=== PATIENT | male | born 1990 | race African-American/Black ===

== ENCOUNTER 2017-12-20 16:25 | Inpatient (IN) | payer OTHER ==
[~2017-12-20] VITALS: Ht 182.9 cm; Wt 108.9 kg
--- NOTE | ~2017-12-20 | EKG ---
[facility] [address] [facility] [employer] [address] [place] [address] ELECTROCARDIOGRAM REPORT Name: ALEJANDRA BEARDEN Room #: 211-P ADM IN M.R.#: [id number] Admission: 12/20/17 Attend Phys: Nedra Maxwell Discharge: Date of : 89 Report #: [id number] THIS REPORT FOR: //name// [facility] ED Test Date: 2017-12-20 Test Time: 16:42:13 Pat Name: ALEJANDRA BEARDEN Department: Room: 211 Gender: M Chief Nuclear Medicine Technologist: Parish TANNER : 1990 Requested By: Stacy Wesley Order Number: [id number] MD: Torsten Evans Measurements Intervals [place] Rate: 66 P: 55 VA: 281 QRS: 34 QRSD: 85 T: 6 QT: 366 QTc: 384 Interpretive Statements Sinus rhythm with high-grade AV block noted Junctional escape complexes Prolonged VA interval Early transition J-point elevation consistent with early repol pattern No previous ECG available for comparison Electronically Signed On 12-21-2017 10:09:24 DOUBLE HEAD MACHINE OPERATOR by Torsten Evans [email or web address] <ELECTRONICALLY SIGNED> By: Torsten Evans MD 12/21/17 1009 41 41 Torsten Evans MD /EPI
--- NOTE | ~2017-12-20 | 2DMMODE ---
[facility] [address] [place] [address] 2 D/M-MODE ECHOCARDIOGRAM Name: ALEJANDRA BEARDEN Room #: 211-P ADM IN M.R.#: [id number] Admission: 12/20/17 Attend Phys: Nedra Guthrie Discharge: Date of : 89 Date of Service: 12/22/17 0853 Report #: [id number] THIS REPORT FOR: //name// APPROVED REPORT Study performed: 12/22/2017 07:59:10 EXAM: Comprehensive 2D, Doppler, and color-flow Echocardiogram Patient Location: Echo lab Room #: 211 Status: routine BSA: 2.30 HR: 39 bpm BP: 104/49 mmHg Rhythm: Bradycardia Other Information Study Quality: Good Indications Bradycardia Complete heart block Echo Enhancing Agent Indication: Rule out Shunt Agent(s) / Amount(s) Used: Agitated Saline 7 cc 2D Dimensions RVDd: 38.88 mm IVSd: 13.54 (7-11mm) LVOT Diam: 23.25 (18-24mm) LVDd: 50.42 mm PWd: 11.78 (7-11mm) Ascending Ao: 37.14 (22-36mm) LVDs: 32.86 (25-40mm) Aortic Root: 36.70 mm IVC: 18.00 mm Volumes Left Atrial Volume (Systole) Single Plane 4CH: 37.76 mL Single Plane 2CH: 47.34 mL LA ESV Index: 21.00 mL/m2 Aortic Valve AoV Peak Alfredito.: 1.00 m/s AO Peak Gr.: 4.02 mmHg LVOT Max P.50 mmHg LVOT Max V: 0.79 m/s SHANT Vmax: 3.35 cm2 [facility] [address] [place] [address] 2 D/M-MODE ECHOCARDIOGRAM Name: ALEJANDRA BEARDEN Room #: 211-P [facility] IN ..#: [id number] Admission: 12/20/17 Attend Phys: Nedra Guthrie Discharge: Date of : 89 Date of Service: 12/22/17 0853 Report #: [id number] Mitral Valve E/A Ratio: 1.4 MV Decel. Time: 309.40 ms MV E Max Alfredito.: 0.70 m/s MV A Alfredito.: 0.51 m/s MV PHT: 89.73 ms IVRT: 133.79 ms Pulmonary Valve PV Peak Alfredito.: 1.02 m/s PV Peak Gr.: 4.16 mmHg GA End Vmax: 0.98 m/s Pulmonary Vein P Vein S: 0.59 m/s P Vein A: 0.24 m/s P Vein D: 0.18 m/s P Vein A Dur.: 92.3 msec P Vein S/D Ratio: 3.28 Tricuspid Valve TR Peak Alfredito.: 1.80 m/s TR Peak Gr.: 13.00 mmHg PA Pressure: 18.00 mmHg Left Ventricle The left ventricle is normal size. There is normal LV segmental wall motion. Mild concentric left ventricular hypertrophy. The left ventricular systolic function is normal. The left ventricular ejection fraction is within the normal range. LVEF is 60-65%. The left ventricular diastolic function is normal. Right Ventricle The right ventricle is normal size. The right ventricular systolic function is normal. Atria The left atrium size is normal. No shunting by contrast bubble injection Right atrium is borderline dilated. Aortic Valve The aortic valve is normal in structure. No aortic regurgitation is present. There is no aortic valvular stenosis. Mitral Valve The mitral valve is normal in structure. Trace mitral regurgitation. No evidence of mitral valve stenosis. [facility] [address] [place] [address] 2 D/M-MODE ECHOCARDIOGRAM Name: ALEJANDRA BEARDEN Room #: 211-P [facility] IN M.R.#: [id number] Admission: 12/20/17 Attend Phys: Nedra Guthrie Discharge: Date of : 89 Date of Service: 12/22/17 0853 Report #: [id number] Tricuspid Valve The tricuspid valve is normal in structure. There is trace tricuspid regurgitation. Estimated PAP 18 mmHg. There is no pulmonary hypertension. Pulmonic Valve The pulmonary valve is normal in structure. Mild pulmonic regurgitation. Great Vessels The aortic root is normal in size. IVC is normal in size and collapses >50% with inspiration. Pericardium There is no pericardial effusion. <Conclusion> 1. Normal echocardiogram with Doppler. EF 65% 2. No shunting by contrast bubble injection 3. No pericardial effusion <ELECTRONICALLY SIGNED> By: Jeremy Dial MD, FACC 12/22/17852 2 2 Jeremy Dial MD, FACC /INF
--- NOTE | ~2017-12-20 | EKG ---
[address] [place] [address] ELECTROCARDIOGRAM REPORT Name: ALEJANDRA BEARDEN Room #: 211-P ADM IN M.R.#: [id number] Admission: 12/20/17 Attend Phys: Nedra Maxwell Discharge: Date of : [birth year] Report #: [id number] THIS REPORT FOR: //name// [facility] Test Date: 2017-12-22 Test Time: 07:08:57 Pat Name: ALEJANDRA BEARDEN Department: Room: 211 P Gender: M Manager Telecom: JULIANA : 1990 Requested By: Yasmin Clayton Order Number: [id number] MD: Jeremy Dila Measurements Intervals [place] Rate: 42 P: 9 IL: 100 QRS: 26 QRSD: 106 T: 8 QT: 417 QTc: 349 Interpretive Statements Sinus rhythm with complete heart block Early repolarization Compared to ECG 12/20/2017 16:42:13 No significant change was found Electronically Signed On 12-22-2017 8:14:08 SALESPERSON [employer] by Jeremy Dial [email or web address] <ELECTRONICALLY SIGNED> By: Jeremy Dial MD, [facility] 12/22/1714 7 Jeremy Dial MD, FACC /EPI
[~2017-12-20 16:25] MED LIST: IBUPROFEN 800800 M1 PO
[2017-12-20 16:26] VITALS: BP 128/80
[2017-12-20 17:20] LABS: ABSOLUTE NEUTROPHILS 4.1 thou/uL (1.4-8.2); BASOPHILS 0.8 % (0.0-2.0); EOSINOPHILS 0.7 % (0.0-3.0); HEMATOCRIT 44.9 % (42.0-52.0); LYMPHOCYTES 31.7 % (24.0-44.0); MCH 27.7 pg (26.0-34.0); MCHC 33.3 g/dL (28.0-37.0); MCV 83.1 fL (80.0-100.0); MONOCYTES 7.3 % (1.0-8.0); PLATELET COUNT 203 thou/uL (150-400); POLYS 59.5 % (36.0-66.0); RBC 5.41 mil/uL (4.50-6.00); WBC 6.9 thou/uL (4.0-11.0)
[2017-12-20 17:27] LABS: ANION GAP 8 mmol/L (7-16); BUN 10 mg/dL (7-18); CALCIUM 9.7 mg/dL (8.5-10.1); CHLORIDE 104 mmol/L (98-107); CO2 29 mmol/L (21-32); GLUCOSE 109 mg/dL (74-106); POTASSIUM 3.5 mmol/L (3.5-5.1); SODIUM 141 mmol/L (136-145)
[2017-12-20 17:35] LABS: TROPONIN-I <0.06 ng/mL (<0.06)
[2017-12-20 18:25] VITALS: BP 135/75
[2017-12-20 18:40] VITALS: BP 130/79
[2017-12-20 19:45] VITALS: BP 141/68
[2017-12-21 03:49] LABS: URINE BILIRUBIN NEGATIVE (Negative); URINE BLOOD NEGATIVE (Negative); URINE CLARITY CLEAR; URINE COLOR YELLOW; URINE GLUCOSE-RANDOM* NEGATIVE (Negative); URINE KETONES NEGATIVE (Negative); URINE LEUKOCYTES NEGATIVE (Negative); URINE NITRITE NEGATIVE (Negative); URINE PROTEIN (DIPSTICK) NEGATIVE (Negative); URINE SPECIFIC GRAVITY 1.025 (1.005-1.035); URINE UROBILINOGEN 0.2 E.U./dl (0.2-1.0)
[2017-12-21 03:56] LABS: AMP/METHAMP Negative (Negative); BARBITURATES Negative (Negative); BENZODIAZEPINES Negative (Negative); COCAINE Negative (Negative); METHADONE Negative (Negative); OPIATES Negative (Negative); PCP Negative (Negative)
[2017-12-21 04:53] VITALS: BP 115/69
[2017-12-21 08:47] VITALS: BP 124/64
[2017-12-21 12:00] VITALS: BP 133/69
[2017-12-21 15:15] VITALS: BP 120/77
[2017-12-21 20:35] VITALS: BP 130/72
[2017-12-22 05:36] VITALS: BP 104/49
[2017-12-22 08:45] VITALS: BP 110/61
[2017-12-22 11:36] VITALS: BP 116/77
[2017-12-22 16:22] VITALS: BP 116/77
== END 2017-12-22 16:53 | disposition home or self-care (01) | DRG 310 ==
LOC: ER 16:25 → 2N 18:24 → EROBS 18:24 → 2N 18:48 → ENTRNSPT 12-22 16:33 → 2N 12-22 16:53
PROVIDERS: Hospitalist; Student in an Organized Health Care Education/Training Program
DX: I44.1 Atrioventricular block, second degree (principal); F17.290 Nicotine dependence, other tobacco product, uncomplicated; F12.10 Cannabis abuse, uncomplicated; I42.9 Cardiomyopathy, unspecified; Z79.899 Other long term (current) drug therapy; Z28.21 Immunization not carried out because of patient refusal
CPT/HCPCS: 10081; 10194

== ENCOUNTER 2018-01-02 16:31 | Inpatient (IN) | payer OTHER ==
[~2018-01-02] VITALS: Ht 182.9 cm; Wt 108.9 kg
--- NOTE | ~2018-01-02 | EKG ---
[address] [place] [address] ELECTROCARDIOGRAM REPORT Name: ALEJANDRA BEARDEN Room #: 211-P DIS IN M.R.#: [id number] Admission: 01/02/18 Attend Phys: Desean Johnson MD Discharge: 01/02/18 Date of : 89 Report #: [id number] THIS REPORT FOR: //name// [facility] ED Test Date: 2018-01-02 Test Time: 16:45:25 Pat Name: ALEJANDRA BEARDEN Department: Room: 211 Gender: M Polysomnography Technologist: JAKI : 1990 Requested By: Julissa Alejandro Order Number: [id number] MD: Jeremy Dial Measurements Intervals [place] Rate: 52 P: IL: QRS: 28 QRSD: 98 T: 6 QT: 404 QTc: 376 Interpretive Statements Sinus bradycardia with heart block Early repolarization Compared to ECG 12/22/2017 07:08:57 No significant change was found Electronically Signed On 01-03-2018 8:48:31 MULTI DISCIPLINED LANGUAGE ANALYST by Jeremy Dial [email or web address] <ELECTRONICALLY SIGNED> By: Jeremy Dial MD, [facility] 01/03/18 0848 1645 164 Jeremy Dial MD, FACC /EPI
[2018-01-02 16:36] VITALS: BP 110/70
[2018-01-02 17:13] LABS: ABSOLUTE NEUTROPHILS 3.3 thou/uL (1.4-8.2); BASOPHILS 0.7 % (0.0-2.0); EOSINOPHILS 0.6 % (0.0-3.0); HEMATOCRIT 43.9 % (42.0-52.0); HEMOGLOBIN 14.6 gm/dL (14.0-18.0); LYMPHOCYTES 38.3 % (24.0-44.0); MCH 27.7 pg (26.0-34.0); MCHC 33.3 g/dL (28.0-37.0); MCV 83.3 fL (80.0-100.0); MONOCYTES 6.8 % (1.0-8.0); PLATELET COUNT 222 thou/uL (150-400); POLYS 53.6 % (36.0-66.0); RBC 5.27 mil/uL (4.50-6.00); RDW 14.2 % (10.5-14.5); WBC 6.2 thou/uL (4.0-11.0)
[2018-01-02 17:24] LABS: ANION GAP 6 mmol/L (7-16); BUN 12 mg/dL (7-18); CALCIUM 9.4 mg/dL (8.5-10.1); CHLORIDE 104 mmol/L (98-107); CO2 28 mmol/L (21-32); GLUCOSE 113 mg/dL (74-106); POTASSIUM 3.8 mmol/L (3.5-5.1); SODIUM 138 mmol/L (136-145)
[2018-01-02 17:29] LABS: ALBUMIN 3.9 g/dL (3.4-5.0); SGOT 18 U/L (15-37); SGPT 19 U/L (30-65); TOTAL BILIRUBIN 0.6 mg/dL (<0.1-1.0); TOTAL PROTEIN 7.7 g/dL (6.4-8.2); TROPONIN-I <0.06 ng/mL (<0.06)
[2018-01-02 18:01] VITALS: BP 99/50
[2018-01-02 18:35] VITALS: BP 105/85
[2018-01-02 19:35] VITALS: BP 118/79
== END 2018-01-02 21:45 | disposition left against medical advice (07) | DRG 310 ==
LOC: ER 16:31 → EROBS 17:52 → 2N 18:27
PROVIDERS: Physician Assistant
DX: I44.1 Atrioventricular block, second degree (principal); F12.90 Cannabis use, unspecified, uncomplicated; Z53.21 Procedure and treatment not carried out due to patient leaving prior to being seen by health care provider; Z82.49 Family history of ischemic heart disease and other diseases of the circulatory system; Z71.51 Drug abuse counseling and surveillance of drug abuser
CPT/HCPCS: 10194

== ENCOUNTER 2018-05-15 14:57 | Emergency (ER) | payer OTHER ==
[~2018-05-15] VITALS: Ht 182.9 cm; Wt 104.3 kg
[2018-05-15] MEDS ORDERED: CARAFATE 1 GM TA1 G1 PO (16:37)
[2018-05-15 16:48] VITALS: BP 123/85
--- NOTE | 2018-05-16 08:30 | EKG ---
[place] [address] [place] [address] ELECTROCARDIOGRAM REPORT Name: ALEJANDRA BEARDEN Room #: DEP ELISA Caldwell#: [id number] ������������������ Admission: 05/15/18 ������������������ Attend Phys: Discharge: 05/15/18 ������������������ Date of : 89 Report #: [id number] ����������������������������������������������������������������� [id number] THIS REPORT FOR: //name// [facility] ED Test Date: 2018-05-15 Test Time: 15:18:08 Pat Name: ALEJANDRA BEARDEN Department: Room: Gender: M School Patrol: TJOHZEENAT : 1990 Requested By: Ijeoma Cartwright Order Number: [id number] MD: Blake Cordero Measurements Intervals [place] Rate: 85 P: -39 CO: QRS: 19 QRSD: 82 T: 11 QT: 346 QTc: 412 Interpretive Statements Sinus rhythm Second deg AVB, Mobitz I (Celeste) ST elevation early repol similar to prior Compared to ECG 01/02/2018 16:45:25 Electronically Signed On 05-16-2018 8:30:16 CDT by Blake Cordero [email or web address] ��������������������������������������������� <ELECTRONICALLY SIGNED> ���������������������������������������� By: Blake Cordero MD ��������������������������������������������� 05/16/18829 1518 1518 Blake Cordero MD /JUSTINE
== END 2018-05-15 16:49 | disposition home or self-care (01) ==
LOC: ER 14:57
DX: I44.1 Atrioventricular block, second degree (principal)

== ENCOUNTER 2018-06-08 06:41 | Observation (INO) | payer OTHER ==
[~2018-06-08] VITALS: Ht 182.9 cm; Wt 104.7 kg
[~2018-06-08 06:41] MED LIST changes: +CARAFATE 1 GM TA1 G1 PO
[2018-06-08 07:07] LABS: ABSOLUTE NEUTROPHILS 3.7 thou/uL (1.4-8.2); EOSINOPHILS 1.1 % (0.0-3.0); HEMATOCRIT 45.8 % (42.0-52.0); HEMOGLOBIN 15.1 gm/dL (14.0-18.0); LYMPHOCYTES 38.2 % (24.0-44.0); MCH 27.1 pg (26.0-34.0); MCV 82.2 fL (80.0-100.0); MONOCYTES 7.6 % (1.0-8.0); PLATELET COUNT 244 thou/uL (150-400); POLYS 52.1 % (36.0-66.0); RBC 5.58 mil/uL (4.50-6.00); RDW 14.1 % (10.5-14.5); WBC 7.1 thou/uL (4.0-11.0)
[2018-06-08 07:12] VITALS: BP 118/61
[2018-06-08 07:15] LABS: CALCIUM 9.4 mg/dL (8.5-10.1); CREATININE 1.1 mg/dL (0.7-1.3); POTASSIUM 3.5 mmol/L (3.5-5.1)
[2018-06-08 07:20] LABS: APTT 32.2 Seconds (24.5-32.8); PROTIME 10.7 Seconds (9.3-11.4)
[2018-06-08 07:21] LABS: ALBUMIN 4.4 g/dL (3.4-5.0); TOTAL BILIRUBIN 0.8 mg/dL (<0.1-1.0); TOTAL PROTEIN 8.1 g/dL (6.4-8.2)
[2018-06-08 16:00] VITALS: BP 131/84
--- NOTE | 2018-06-08 19:05 | NUR ---
PT ADNITTED FROM THE PACU AFTER A PACEMAKER PLCMENT. PT C/O HEADACHE AND SURGICAL SITE SORENESS. DENIES ANY OTHER DISCOMFORT. PT IS AFIBRILE, VSS. PT INSTRUCTED ON LEAVING IMMOBILISER ON AND NOT LIFTING ARM ABOVE HEART. SITE TO RIGHT GROIN WITH NO HEMATOMA.
[2018-06-08 19:13] VITALS: BP 104/59
[2018-06-09 00:46] VITALS: BP 119/81
--- NOTE | 2018-06-09 05:34 | NUR ---
PATIENTS CARE WAS ASSUMED AT SHIFT CHANGE. PATIENT WAS ASSESSED AND MEDS WERE PASSED. HOURLY ROUNDING WAS DONE. PATIENT DID SLEEP FROM MIDNIGHT TO 530. UP AT 0530 TO REQUEST PAIN MEDS. HE STATED IT HURTS WERE HIS PACEMAKER IS. PAIN MEDS WERE GIVEN. PATIENT AMBULATED IN THE HOWELL BEFORE BED. THE BED IS IN A LOW AND LOCKED POSITION. BED ALARM OFF DO TO HE IS INDEPENDENT IN HIS ROOM.
[2018-06-09 05:35] VITALS: BP 125/90
[2018-06-09 07:10] VITALS: BP 112/70
[2018-06-09 11:05] VITALS: BP 115/83
[2018-06-09 14:39] VITALS: BP 115/83
--- NOTE | 2018-06-09 16:44 | EKG ---
[address] [address] ELECTROCARDIOGRAM REPORT Name: ALEJANDRA BEARDEN [facility] Room #: 210-P [facility] M..#: [id number] ������������������ Admission: 06/08/18 ������������������ Attend Phys: Blake Cordero MD Discharge: 06/09/18 ������������������ Date of : [birth year] Report #: [id number] ����������������������������������������������������������������� [id number] THIS REPORT FOR: //name// [facility] Test Date: 2018-06-09 Test Time: 08:50:19 Pat Name: ALEJANDRA BEARDEN Department: Room: 210 P Gender: M Waist Fitter: JULIANA : 1990 Requested By: Blake Cordero Order Number: [id number] MD: Jeremy Dial Measurements Intervals [place] Rate: 70 P: 57 MA: 306 QRS: -8 QRSD: 146 T: 94 QT: 407 QTc: 440 Interpretive Statements Atrial-sensed ventricular-paced rhythm No further analysis attempted due to paced rhythm Compared to ECG 05/15/2018 15:18:08 Ventricular pacing now present Electronically Signed On 06-09-2018 16:43:50 CDT by Jeremy Dial [email or web address] ��������������������������������������������� <ELECTRONICALLY SIGNED> ���������������������������������������� By: Jeremy Dial MD, [facility] ��������������������������������������������� 06/09/18 1643 0850 0850 Jeremy Dial MD, [facility] /EPI
--- NOTE | 2018-06-12 14:31 | P ---
[facility] [place] [address] PROCEDURE REPORT Name: ALEJANDRA BEARDEN [facility] Room #: 210-P [facility] Duong Caldwell#: [id number] Admission: 06/08/18 ������������������ Attend Phys: Blake Cordero MD Discharge: 06/09/18 ������������������ Date of : 89 Report #: [id number] THIS REPORT FOR: //name// CC: ELAYNE physician/PCP ELAYNE unknown Blake Cordero PREOPERATIVE DIAGNOSES: 1. Third degree heart block. 2. Syncope. POSTOPERATIVE DIAGNOSES: 1. Third degree heart block. 2. Syncope. HISTORY OF PRESENT ILLNESS: The patient is a 27-year-old with a history of documented complete heart block, first documented in December. He has worn multiple cardiac monitors and has had some recent syncopal episodes. I have; therefore, recommended that he undergo dual chamber pacemaker implantation. ANESTHESIA: The patient underwent MAC anesthesia, no anesthesia related complications. DESCRIPTION OF PROCEDURE: The patient underwent informed consent. We discussed the details of the procedure including the risks, which include but not limited to bleeding, infection, vascular damage, cardiac perforation and pneumothorax. He understood these risks and is willing to proceed. The patient was brought to the EP laboratory in a fasting and unsedated state, prepped and draped in a sterile fashion and underwent a venogram showing patency of the left axillary vein. He received IV antibiotics prior to initiation of the procedure. Next, I injected lidocaine below the level of the left clavicle. Incision was made, pocket was created over the prepectoral fascia and then attempts were made at obtaining access. Of note, he did have somewhat unusual left axillary anatomy as the vessel did not cross at the intersection of the first rib and clavicle. I attempted to obtain access for quite some time. I eventually got some venous return, but the wire would not advance. I performed another venogram and it still appeared patent. Again, it took me a while I could not obtain access, so a third venogram was performed and the vessel was still patent, but flow was now more sluggish. I did perform a stick more laterally than usual and had to go quite deep to finally get the vessel. I then was able to obtain access twice to this axillary vein and sheaths were positioned using the modified Seldinger technique. Next, using a Medtronic sheath designed for His bundle pacing, attempts were made to position the lead at the His. Before performing the pacemaker, I did obtain access to the right femoral vein and I did place a quadripolar catheter at the His position to help guide me to the His bundle region. Multiple attempts were made to position the [facility] [address] [place] [address] PROCEDURE REPORT Name: ALEJANDRA BEARDEN [facility] Room #: 210-P [facility] Duong Caldwell#: [id number] Admission: 06/08/18 ������������������ Attend Phys: Blake Cordero MD Discharge: 06/09/18 ������������������ Date of : 89 Report #: [id number] lead at the His location. At this site, I would get preferential atrial pacing or I would have to pace very high outputs to get any ventricular capture. Eventually, I was able to position the lead high up on the septum. There appeared to be a far field His signal at this location. The lead was screwed into this site. There was good pacing and sensing thresholds. The QRS duration was narrow at around 125 milliseconds, but it did not appear to be true His capture. It appeared that there was likely some septal capture. The sheath was split and the lead remained in position. Next, I positioned an atrial lead into the right atrial appendage with adequate pacing and sensing thresholds. Then, I split both sheaths and the leads were sutured to the prepectoral fascia. The device was connected and placed in the pocket. The pocket was irrigated with vancomycin and then the pocket was closed in three layers using 2-0 for the deep layer, 3-0 for the middle layer and 4-0 for the subcuticular. Surgical glue was placed to the outer skin layer. The patient awoke neurologically and hemodynamically intact. No complications and no significant bleeding. The implanted pacemaker was a MedGet Together, model #W3DR01, serial #[id number]. The atrial lead was a Medtronic model #5076, serial #[id number] with a P-wave of 5 millivolts, pacing impedance of 513 ohms and the pacing threshold of 0.5 volts at 0.5 milliseconds. The RV lead was the Medtronic model #035208, serial #[id number]. This lead demonstrated an R-wave of 8.5 millivolts, pacing impedance of 589 ohms and the pacing threshold of 0.5 volts at 0.5 milliseconds. The device was programmed to the DDD 50-150 beats per minute. Of note, while pacing the atrial lead there was clear evidence of complete heart block at around 80 to 90 beats per minute. CONCLUSIONS: 1. Successful pacemaker implantation. 2. Satisfactory atrial and ventricular pacing and sensing thresholds. 3. Successful implantation of RV pacing lead near the His bundle with nonselective His capture. ��������������������������������������������� <ELECTRONICALLY SIGNED> ���������������������������������������� By: Blake Cordero MD ��������������������������������������������� 06/12/18 1431 1657 0027 Blake Cordero MD /nt
--- NOTE | 2018-06-12 14:31 | D ---
[facility] [address] [place] [address] DISCHARGE SUMMARY Name: ALEJANDRA BEARDEN [place] Room #: 210-P [facility] Duong MVictorina#: [id number] Admission: 06/08/18 ������������������ Attend Phys: Blake Cordero MD Discharge: 06/09/18 ������������������ Date of : 89 Report #: [id number] THIS REPORT FOR: //name// CC: ELAYNE physician/PCP ELAYNE unknown Blake Cordero DATE OF SERVICE: 06/09/2018 PREOPERATIVE DIAGNOSES: 1. Complete heart block. 2. Syncope. PROCEDURE PERFORMED: Dual chamber pacemaker implantation. HISTORY OF PRESENT ILLNESS: The patient is a 27-year-old with history of complete heart block. I have been following him for several months. He had refused pacemaker in the past, but has recently had a couple of syncopal episodes and therefore decided to proceed with pacemaker implantation. He underwent successful dual-chamber pacemaker implantation. I attempted to place the RV lead at His bundle region, could not get into the His completely, but I did get very high septum with likely some nonselective His capture. The procedure was without complications. HOSPITAL COURSE: He was monitored in the CCU overnight, on telemetry, it demonstrated that he is in sinus rhythm with ventricular pacing. His device was interrogated. He had stable pacing and sensing thresholds with 100% right ventricular pacing noted. His chest x-ray showed stable lead position with no pneumothorax. On the day of discharge, he was doing well without any chest pain or shortness of breath. He did have some incision discomfort. He denied any presyncope or syncope. PHYSICAL EXAMINATION: GENERAL: He was in no acute distress. HEART: Regular rate and rhythm. LUNGS: Clear bilaterally. SKIN: His incision was healing nicely with no significant bruising or hematoma. As such, he was deemed stable for discharge home. His discharge instructions were reviewed. He was given a prescription for some [place] for pain. He has an appointment to follow up in 7-10 days for site check and see me in 3 months. ��������������������������������������������� <ELECTRONICALLY SIGNED> ���������������������������������������� By: Blake Cordero MD ��������������������������������������������� 06/12/18 1431 0918 1834 Blake Cordero MD /nt
== END 2018-06-09 15:20 | disposition home or self-care (01) ==
LOC: CATH 06:41 → 2N 14:18
PROVIDERS: ADMIT Internal Medicine Cardiovascular Disease
DX: I44.2 Atrioventricular block, complete (principal); R55 Syncope and collapse
CPT/HCPCS: 62110; 62900; 70005

== ENCOUNTER 2018-07-27 18:20 | Emergency (ER) | payer OTHER ==
[~2018-07-27] VITALS: Ht 182.9 cm; Wt 108.9 kg
[2018-07-27 18:21] VITALS: BP 122/80
[2018-07-27] MEDS ORDERED: TRIMETHOPRIM /P10 M1 OPHTHALMIC (19:35)
== END 2018-07-27 19:52 | disposition home or self-care (01) ==
LOC: ER 18:20
DX: H10.89 Other conjunctivitis (principal)

== ENCOUNTER 2018-08-08 16:46 | Emergency (ER) | payer OTHER ==
[~2018-08-08] VITALS: Ht 182.9 cm; Wt 108.9 kg
[~2018-08-08 16:46] MED LIST changes: +TRIMETHOPRIM /P10 M1 OPHTHALMIC
[2018-08-08 16:48] VITALS: BP 136/88
== END 2018-08-08 17:10 | disposition home or self-care (01) ==
LOC: ER 16:46
DX: H10.9 Unspecified conjunctivitis (principal)

== ENCOUNTER 2018-09-27 12:51 | Emergency (ER) | payer OTHER ==
[~2018-09-27] VITALS: Ht 182.9 cm; Wt 97.5 kg
[2018-09-27 14:30] VITALS: BP 106/67
== END 2018-09-27 14:30 | disposition home or self-care (01) ==
LOC: ER 12:51
DX: J02.0 Streptococcal pharyngitis (principal)

== ENCOUNTER 2018-11-03 15:37 | Emergency (ER) | payer OTHER ==
[~2018-11-03] VITALS: Ht 182.9 cm; Wt 106.6 kg
[2018-11-03 17:00] LABS: ABSOLUTE NEUTROPHILS 3.3 thou/uL (1.4-8.2); BASOPHILS 0.3 % (0.0-2.0); HEMATOCRIT 43.9 % (42.0-52.0); LYMPHOCYTES 36.3 % (24.0-44.0); MCH 27.1 pg (26.0-34.0); MCV 84.7 fL (80.0-100.0); MONOCYTES 7.6 % (1.0-8.0); PLATELET COUNT 215 thou/uL (150-400); POLYS 54.8 % (36.0-66.0); RBC 5.19 mil/uL (4.50-6.00); RDW 14.4 % (10.5-14.5)
[2018-11-03 17:11] LABS: ANION GAP 9 mmol/L (7-16); BUN 14 mg/dL (7-18); CALCIUM 9.1 mg/dL (8.5-10.1); CHLORIDE 106 mmol/L (98-107); CO2 28 mmol/L (21-32); GLUCOSE 105 mg/dL (74-106); POTASSIUM 3.5 mmol/L (3.5-5.1); SODIUM 143 mmol/L (136-145)
[2018-11-03 17:20] LABS: TROPONIN-I <0.06 ng/mL (<0.06)
[2018-11-03 17:57] VITALS: BP 110/66
--- NOTE | 2018-11-04 11:52 | EKG ---
[facility] [place] [address] ELECTROCARDIOGRAM REPORT Name: ALEJANDRA BEARDEN Room #: DEP ELISA Caldwell#: [id number] ������������������ Admission: 11/03/18 ������������������ Attend Phys: Discharge: 11/03/18 ������������������ Date of : 89 Report #: [id number] ����������������������������������������������������������������� [id number] THIS REPORT FOR: //name// [facility] ED Test Date: 2018-11-03 Test Time: 15:37:53 Pat Name: ALEJANDRA BEARDEN Department: Room: Gender: Flavorer: SHIMA : 1990 Requested By: Sonia Sue Order Number: [id number] MD: Jeremy Dial Measurements Intervals [place] Rate: 69 P: 67 [place]: 306 QRS: -25 QRSD: 158 T: -51 QT: 422 QTc: 452 Interpretive Statements Atrial-sensed ventricular-paced rhythm No further analysis attempted due to paced rhythm Compared to ECG 06/09/2018 08:50:19 No significant changes Electronically Signed On 11-04-2018 11:52:38 CDT by Jeremy Dial [email or web address] ��������������������������������������������� <ELECTRONICALLY SIGNED> ���������������������������������������� By: Jeremy Dial MD, [facility] ��������������������������������������������� 11/04/18 1152 1537 153 Jeremy Dial MD, FACC /EPI
== END 2018-11-03 18:09 | disposition still patient (30) ==
LOC: ER 15:37
PROVIDERS: Nurse Practitioner
DX: R07.89 Other chest pain (principal); Z95.0 Presence of cardiac pacemaker

== ENCOUNTER 2018-12-31 22:11 | Emergency (ER) | payer OTHER ==
[~2018-12-31] VITALS: Ht 182.9 cm; Wt 106.6 kg
[2018-12-31] MEDS ORDERED: AZITHROMYCIN250 MG PO (23:40)
[2018-12-31 23:56] VITALS: BP 119/77
== END 2018-12-31 23:58 | disposition home or self-care (01) ==
LOC: ER 22:11
DX: J18.9 Pneumonia, unspecified organism (principal); Z95.0 Presence of cardiac pacemaker

== ENCOUNTER 2019-01-30 11:50 | Emergency (ER) | payer OTHER ==
[~2019-01-30] VITALS: Ht 182.9 cm; Wt 108.4 kg
[~2019-01-30 11:50] MED LIST changes: +AZITHROMYCIN250 MG PO
[2019-01-30 12:46] LABS: ABSOLUTE NEUTROPHILS 4.1 thou/uL (1.4-8.2); BASOPHILS 0.7 % (0.0-2.0); EOSINOPHILS 0.7 % (0.0-3.0); HEMATOCRIT 46.7 % (42.0-52.0); HEMOGLOBIN 14.9 gm/dL (14.0-18.0); LYMPHOCYTES 29.7 % (24.0-44.0); MCH 26.6 pg (26.0-34.0); MCHC 31.8 g/dL (28.0-37.0); MCV 83.7 fL (80.0-100.0); MONOCYTES 4.1 % (1.0-8.0); PLATELET COUNT 246 thou/uL (150-400); POLYS 64.8 % (36.0-66.0); RBC 5.58 mil/uL (4.50-6.00); RDW 14.5 % (10.5-14.5); WBC 6.4 thou/uL (4.0-11.0)
[2019-01-30 12:54] LABS: ANION GAP 6 mmol/L (7-16); BUN 8 mg/dL (7-18); CALCIUM 9.2 mg/dL (8.5-10.1); CHLORIDE 102 mmol/L (98-107); CO2 30 mmol/L (21-32); GLUCOSE 99 mg/dL (74-106); POTASSIUM 3.9 mmol/L (3.5-5.1); SODIUM 138 mmol/L (136-145)
[2019-01-30 13:03] LABS: TROPONIN-I <0.06 ng/mL (<0.06)
[2019-01-30 14:26] VITALS: BP 117/78
--- NOTE | 2019-01-31 08:00 | EKG ---
[facility] [place] [address] ELECTROCARDIOGRAM REPORT Name: ALEJANDRA BEARDEN Room #: DEP Paulette#: [id number] Admission: 01/30/19 Attend Phys: Discharge: 01/30/19 Date of : [birth year] Report #: [id number] THIS REPORT FOR: //name// [facility] ED Test Date: 2019-01-30 Test Time: 12:00:05 Pat Name: ALEJANDRA BEARDEN Department: Room: Gender: Vacuum Cleaner Operator: SHIMA : 1990 Requested By: Mahesh Ceron Order Number: [id number] MD: Jeremy Dial Measurements Intervals [place] Rate: 68 P: 32 VT: 317 QRS: -20 QRSD: 150 T: 50 QT: 421 QTc: 448 Interpretive Statements Atrial-sensed ventricular-paced rhythm No further analysis attempted due to paced rhythm Baseline wander in lead(s) V3,V4 Compared to ECG 11/03/2018 15:37:53 No significant changes Electronically Signed On 01-31-2019 8:00:24 SUBASSEMBLY ASSEMBLER by Jeremy Dial [email or web address] <ELECTRONICALLY SIGNED> By: Jeremy Dial MD, [facility] 01/31/19 0800 1200 99 Jeremy Dial MD, [facility] /EPI
== END 2019-01-30 14:27 | disposition home or self-care (01) ==
LOC: ER 11:50
PROVIDERS: Emergency Medicine
DX: R07.9 Chest pain, unspecified (principal); Z95.0 Presence of cardiac pacemaker